=== PATIENT | female | born 1995 | race Caucasian/White ===

== ENCOUNTER 2017-12-05 00:13 | Emergency (ER) | payer OTHER ==
[2017-12-05 01:35] VITALS: BP 147/82
== END 2017-12-05 01:55 | disposition home or self-care (01) ==
LOC: ED 00:13
DX: S61.412A Laceration without foreign body of left hand, initial encounter (principal); E11.9 Type 2 diabetes mellitus without complications; W45.8XXA Other foreign body or object entering through skin, initial encounter; Y93.89 Activity, other specified; Y92.89 Other specified places as the place of occurrence of the external cause; Y99.8 Other external cause status
CPT/HCPCS: 90715; J2001